=== PATIENT | male | born 1985 | race Hispanic/Latino ===

== ENCOUNTER 2017-02-05 04:10 | Emergency (ER) | payer SELFPAY ==
[~2017-02-05] VITALS: Ht 172.7 cm; Wt 72.6 kg
[2017-02-05] MEDS ORDERED: TETRACAINE 0.5% OPHTH SOLN 4 ML BTL (SINGLE DOSE ONLY) ONE (04:12)
--- NOTE | 2017-02-05 04:34 | ED General ---
General Chief Complaint: Foreign Body Stated Complaint: POSS BUG IN EAR Nursing Triage Note: bug Nursing Sepsis Screen: No Definite Risk Source of Information: Patient Exam Limitations: No Limitations History of Present Illness Time Seen by Provider: 04:10 Initial Comments This 31-year-old gentleman presents to emergency room with an insect in the right ear. Allergies and Home Medications Allergies Coded Allergies: No Known Drug Allergies (Unverified , 02/05/17) Home Medications No Active Prescriptions or Reported Meds Constitutional: no symptoms reported EENTM: see HPI Past Rnmrnpg-Ufvztk-Rwnrng Hx Patient Social History Alcohol Use: Denies Use Recreational Drug Use: No Smoking Status: Never a Smoker Recent Foreign Travel: No Contact w/Someone Who Travel: No Recent Infectious Disease Expo: No Immunizations Up To Date PED Vaccines UTD: No Physical Exam Vital Signs Vital Sign - Last 12Hours 02/05/17 02/05/17 04:20 04:36 Temp 98.2 Pulse 59 Resp 18 B/P (MAP) 119/72 Pulse Ox 99 Capillary Refill : Less Than 3 Seconds General Appearance: No Apparent Distress, WD/WN HEENT: PERRL/EOMI, Normal ENT Inspection, Other (insect visualized in the right ear canal) Neck: Normal Inspection Progress/Results/Core Measures Results/Orders My Orders Orders - KARISSA THOMAS MD Tetracaine 0.5% Ophth Rosalia Sdv (Tetracai (02/05/17 04:12) Medications Given in ED Current Medications Medications Dose Ordered Sig/Bereket Route Start Time Stop Time Status Last Admin Dose Admin Tetracaine HCl 4 ml STK-MED ONCE .ROUTE 02/05/17 04:12 02/05/17 04:19 DC 02/05/17 04:27 4 ML Vital Signs/I&O Vital Sign - Last 12Hours 02/05/17 02/05/17 04:20 04:36 Temp 98.2 Pulse 59 72 Resp 18 18 B/P (MAP) 119/72 Pulse Ox 99 Blood Pressure Mean: 88 Progress Note : Progress Note Tetracaine drops were used to fill the ear. A few minutes later the drops were drained out. A patino was extracted with alligator forceps. Ear was reexamined. There was mild erythema without any other abnormalities. Departure Impression Impression: Primary Impression: Foreign body of right ear Qualified Codes: T16.1XXA - Foreign body in right ear, initial encounter Disposition: HOME, SELF-CARE Condition: Improved Departure-Patient Inst. Decision time for Depature: 04:33 Referrals: NO,LOCAL PHYSICIAN (PCP) Primary Care Physician Patient Instructions: Foreign Body in Ear, Child (DC) Add. Discharge Instructions: Monitor the right ear over the next couple of days. If you have worsening pain or drainage, return to care for repeat evaluation. All discharge instructions reviewed with patient and/or family. Voiced understanding. Scripts No Active Prescriptions or Reported Meds KARISSA THOMAS MD Feb 05, 2017 04:34
[2017-02-05 04:36] VITALS: BP 119/72
== END 2017-02-05 04:37 | disposition home or self-care (01) ==
LOC: ER 04:15
DX: T16.1XXA Foreign body in right ear, initial encounter (principal)

== ENCOUNTER → 2018-01-23 | Outpatient (CLI) | payer SELFPAY ==
--- NOTE | 2018-01-23 18:31 | Diagnostic Imaging Report ---
PROCEDURE: US right lower extremity venous. TECHNIQUE: Multiple real-time grayscale images were obtained over the right lower extremity in various projections. Additional duplex Doppler and color Doppler images were also obtained. INDICATION: Right lower extremity swelling and pain. COMPARISON: None. FINDINGS: The visualized deep and superficial venous system is patent. There is no mass or DVT. IMPRESSION: Negative right lower extremity venous Doppler. Dictated by: Dictated on workstation # [id number]
== END ==
LOC: RAD 17:19
PROVIDERS: ATTEND Nurse Practitioner Family
DX: M79.661 Pain in right lower leg (principal); M79.89 Other specified soft tissue disorders

== ENCOUNTER 2021-02-09 19:13 | Inpatient (IN) | payer SELFPAY ==
[~2021-02-09] VITALS: Ht 167 cm; Wt 75.0 kg
--- NOTE | 2021-02-09 19:22 | ED General ---
General Stated Complaint: COVID POSITIVE, SOB Source of Information: Patient Exam Limitations: No Limitations History of Present Illness Date Seen by Provider: Feb 09, 2021 Time Seen by Provider: 19:21 Initial Comments Patient tested positive for Covid on 01/26/2021. He presents today with general weakness and overall feeling poorly. Timing/Duration: 1-2 Days Severity: Moderate Associated Systoms: Cough Allergies and Home Medications Allergies Coded Allergies: No Known Drug Allergies (Unverified , 02/05/17) Home Medications No Active Prescriptions or Reported Meds Patient Home Medication List Home Medication List Reviewed: Yes Review of Systems Review of Systems Constitutional: see HPI, weakness EENTM: see HPI Respiratory: see HPI Cardiovascular: no symptoms reported Genitourinary: no symptoms reported Musculoskeletal: no symptoms reported Skin: no symptoms reported Psychiatric/Neurological: No Symptoms Reported Hematologic/Lymphatic: No Symptoms Reported Immunological/Allergic: no symptoms reported Past Tvozott-Sjagti-Pleukl Hx Immunizations Up To Date PED Vaccines UTD: No Past Medical History Surgeries: No Respiratory: No Cardiac: No Neurological: No Genitourinary: No Gastrointestinal: No Musculoskeletal: No Endocrine: No HEENT: No Cancer: No Psychosocial: No Integumentary: No Blood Disorders: No Physical Exam Vital Signs Vital Signs - First Documented 02/09/21 19:26 Temp 37.2 Pulse 122 Resp 22 B/P (MAP) 134/90 (105) Pulse Ox 96 O2 Delivery Room Air Capillary Refill : Height, Weight, BMI Height: 5'8.00" Weight: 160lbs. oz. 72.535955bd; BMI Method:Stated General Appearance: No Apparent Distress, WD/WN, Other (appears to feel poorly but in no distress. O2 sats 95% room air. HR 131. ) Eyes: Bilateral Eye Normal Inspection, Bilateral Eye PERRL HEENT: PERRL/EOMI, TMs Normal Neck: Full Range of Motion, Normal Inspection Respiratory: No Accessory Muscle Use, No Respiratory Distress Cardiovascular: Normal Peripheral Pulses, Tachycardia Gastrointestinal: Normal Bowel Sounds, Non Tender, Soft Extremity: Normal Capillary Refill, Normal Inspection Neurologic/Psychiatric: Alert, Oriented x3 Skin: Normal Color, Warm/Dry Focused Exam Lactate Level 02/09/21 20:39: Lactic Acid Level 0.85 Lactic Acid Level Laboratory Tests Test 02/09/21 20:39 Lactic Acid Level 0.85 MMOL/L (0.50-2.00) Progress/Results/Core Measures Suspected Sepsis SIRS Temperature: Pulse: Respiratory Rate: Laboratory Tests 02/09/21 19:26: White Blood Count 13.5H Blood Pressure / Mean: 02/09/21 20:39: Lactic Acid Level 0.85 Laboratory Tests 02/09/21 19:26: Creatinine 1.09, Platelet Count 253, Total Bilirubin 0.4 Results/Orders Lab Results Laboratory Tests Test 02/09/21 19:26 02/09/21 19:54 02/09/21 20:39 Range/Units White Blood Count 13.5 H 4.3-11.0 10^3/uL Red Blood Count 5.92 H 4.30-5.52 10^6/uL Hemoglobin 17.3 13.3-17.7 g/dL Hematocrit 49 40-54 % Mean Corpuscular Volume 82 80-99 fL Mean Corpuscular Hemoglobin 29 25-34 pg Mean Corpuscular Hemoglobin Concent 36 32-36 g/dL Red Cell Distribution Width 12.3 10.0-14.5 % Platelet Count 253 130-400 10^3/uL Mean Platelet Volume 9.5 9.0-12.2 fL Immature Granulocyte % (Auto) 1 % Neutrophils (%) (Auto) 82 H 42-75 % Lymphocytes (%) (Auto) 8 L 12-44 % Monocytes (%) (Auto) 9 0-12 % Eosinophils (%) (Auto) 0 0-10 % Basophils (%) (Auto) 0 0-10 % Neutrophils # (Auto) 11.0 H 1.8-7.8 10^3/uL Lymphocytes # (Auto) 1.1 1.0-4.0 10^3/uL Monocytes # (Auto) 1.2 H 0.0-1.0 10^3/uL Eosinophils # (Auto) 0.0 0.0-0.3 10^3/uL Basophils # (Auto) 0.0 0.0-0.1 10^3/uL Immature Granulocyte # (Auto) 0.2 H 0.0-0.1 10^3/uL D-Dimer 3.57 H 0.00-0.49 UG/ML Sodium Level 135 135-145 MMOL/L Potassium Level 3.8 3.6-5.0 MMOL/L Chloride Level 104 98-107 MMOL/L Carbon Dioxide Level 6 *L 21-32 MMOL/L Anion Gap 25 H 5-14 MMOL/L Blood Urea Nitrogen 12 7-18 MG/DL Creatinine 1.09 0.60-1.30 MG/DL Estimat Glomerular Filtration Rate 77 BUN/Creatinine Ratio 11 Glucose Level 167 H 70-105 MG/DL Calcium Level 9.0 8.5-10.1 MG/DL Corrected Calcium 9.0 8.5-10.1 MG/DL Total Bilirubin 0.4 0.1-1.0 MG/DL Aspartate Amino Transf (AST/SGOT) 21 5-34 U/L Alanine Aminotransferase (ALT/SGPT) 20 0-55 U/L Alkaline Phosphatase 65 40-136 U/L C-Reactive Protein High Sensitivity 20.61 H 0.00-0.50 MG/DL B-Type Natriuretic Peptide 10.4 <100.0 PG/ML Total Protein 7.9 6.4-8.2 GM/DL Albumin 4.0 3.2-4.5 GM/DL Procalcitonin 0.08 <0.10 NG/ML Salicylates Level < 5.0 L 5.0-20.0 MG/DL Arterial Blood pH 7.22 *L 7.37-7.43 Lactic Acid Level 0.85 0.50-2.00 MMOL/L My Orders Orders - ROSARIO GARCÍA APRN BNP (02/09/21 19:20) Cbc With Automated Diff (02/09/21 19:20) Comprehensive Metabolic Panel (02/09/21 19:20) Ed Iv/Invasive Line Start (02/09/21 19:20) Fibrin Degradation Products (02/09/21 19:20) Hs C Reactive Protein (02/09/21 19:20) Procalcitonin (Pct) (02/09/21 19:20) Abg Ph (02/09/21 19:54) Beta Hydroxybutyrate (02/09/21 19:54) Salicylate (02/09/21 19:54) Ct Angio Chest W (02/09/21 19:55) Iohexol Injection (Omnipaque 350 Mg/Ml 1 (02/09/21 20:15) Received Contrast (Hold Metformin- Contr (02/09/21 20:15) Ns (Ivpb) (Sodium Chloride 0.9% Ivpb Bag (02/09/21 20:15) Lactic Acid Analyzer (02/09/21 20:31) Lactated Ringers (Lr 1000 Ml Iv Solution (02/09/21 21:30) Lactated Ringers (Lr 1000 Ml Iv Solution (02/09/21 21:20) Medications Given in ED Current Medications Medications Dose Ordered Sig/Bereket Route Start Time Stop Time Status Last Admin Dose Admin Iohexol 100 ml ONCE ONCE IV 02/09/21 20:15 02/09/21 20:16 DC 02/09/21 20:27 66 ML Sodium Chloride 100 ml ONCE ONCE IV 02/09/21 20:15 02/09/21 20:16 DC 02/09/21 20:27 80 ML Vital Signs/I&O 02/09/21 02/09/21 19:26 19:38 Temp 37.2 Pulse 122 Resp 22 B/P (MAP) 134/90 (105) Pulse Ox 96 O2 Delivery Room Air Room Air Capillary Refill : Diagnostic Imaging Diagonstic Imaging: CT Comments NAME: MAY BARR [facility] REC#: [id number] PT STATUS: REG ER : 1985 PHYSICIAN: ROSARIO GARCÍA PHYSICIAN CODING SPECIALIST ADMIT DATE: 02/09/21/ER Draft Date of Exam:02/09/21 CT ANGIO CHEST W INDICATION: Covid positive patient, elevated d-dimer and shortness of breath. TECHNIQUE: Multiple contiguous axial images were obtained through the chest after uneventful bolus administration of intravenous contrast. 3D reconstructed CTA MIP acquisitions were also performed. Auto Exposure Controls were utilized during the CT exam to meet ALARA standards for radiation dose reduction. COMPARISON: There is no prior chest CTA for comparison. FINDINGS: The pulmonary parenchymal vessels are well-opacified with no CT evidence of pulmonary emboli. There is no evidence of aortic aneurysm or dissection. Great vessel origins are unremarkable. There are a few minimal nodes in the mediastinum, none appear to be of pathologic size. There are no enlarged hilar nodes or enlarged axillary nodes. There is no pleural or pericardial fluid. The visualized portions of the upper abdomen show no acute finding. Lung parenchymal windows demonstrate fairly extensive groundglass patchy infiltrates throughout the mid to lower lung moon on both sides, compatible with Covid pneumonia. IMPRESSION: No CT evidence of pulmonary emboli, aortic dissection or aneurysm. Infiltrates are present compatible with Covid pneumonia. Dictated on workstation # [id number] Dict: 02/09/212031 Trans: 02/09/212037 [facility] [id number] Interpreted by: VASHTI SCHAEFFER MD Electronically signed by: Departure Communication (Admissions) [id number] with Dr. Ojeda will admit the patient, hydrate overnight repeat labs in the morning. No obvious cause for metabolic acidosis. Lab is having some issues getting the beta hydroxybutyrate back as their machine is down. This could be a euglycemic diabetic ketoacidosis versus starvation ketosis. Impression Primary Impression: COVID-19 Additional Impression: Metabolic acidosis Disposition: ADMITTED INPATIENT Condition: Stable Departure-Patient Inst. Referrals: NO,LOCAL PHYSICIAN (PCP/Family) Primary Care Physician Scripts No Active Prescriptions or Reported Meds ROSARIO GARCÍA APRN Feb 09, 2021 19:22
[2021-02-09 19:35] LABS: BASOPHILS % (AUTO) 0 % (0-10); EOSINOPHILS % (AUTO) 0 % (0-10); HEMATOCRIT 49 % (40-54); HEMOGLOBIN 17.3 g/dL (13.3-17.7); LYMPHOCYTES # (AUTO) 1.1 10^3/uL (1.0-4.0); LYMPHOCYTES % (AUTO) 8 % (12-44); MEAN CORPUSCULAR HEMOGLOBIN 29 pg (25-34); MEAN CORPUSCULAR HGB CONC 36 g/dL (32-36); MEAN CORPUSCULAR VOLUME 82 fL (80-99); MEAN PLATELET VOLUME 9.5 fL (9.0-12.2); MONOCYTES # (AUTO) 1.2 10^3/uL (0.0-1.0); MONOCYTES % (AUTO) 9 % (0-12); NEUTROPHILS % (AUTO) 82 % (42-75); PLATELET COUNT 253 10^3/uL (130-400); WHITE BLOOD COUNT 13.5 10^3/uL (4.3-11.0)
[2021-02-09 19:44] LABS: POTASSIUM 3.8 MMOL/L (3.6-5.0)
[2021-02-09 19:46] LABS: TOTAL PROTEIN 7.9 GM/DL (6.4-8.2)
[2021-02-09 19:48] LABS: BILIRUBIN,TOTAL 0.4 MG/DL (0.1-1.0)
[2021-02-09] MEDS ORDERED: HOLD METFORMIN - RECEIVED CONTRAST 20 ML VIAL IV SCH (20:15)
[2021-02-09] MEDS ORDERED: NS 100 ML (IVPB) BAG IV ONE (20:15)
[2021-02-09] MEDS ORDERED: IOHEXOL 350 MG/ML 100 ML (OMNIPAQUE 350) VIAL IV ONE (20:15)
[2021-02-09 20:37] LABS: SALICYLATE < 5.0 MG/DL (5.0-20.0)
--- NOTE | 2021-02-09 20:40 | Diagnostic Imaging Report ---
INDICATION: Covid positive patient, elevated d-dimer and shortness of breath. TECHNIQUE: Multiple contiguous axial images were obtained through the chest after uneventful bolus administration of intravenous contrast. 3D reconstructed CTA MIP acquisitions were also performed. Auto Exposure Controls were utilized during the CT exam to meet ALARA standards for radiation dose reduction. COMPARISON: There is no prior chest CTA for comparison. FINDINGS: The pulmonary parenchymal vessels are well-opacified with no CT evidence of pulmonary emboli. There is no evidence of aortic aneurysm or dissection. Great vessel origins are unremarkable. There are a few minimal nodes in the mediastinum, none appear to be of pathologic size. There are no enlarged hilar nodes or enlarged axillary nodes. There is no pleural or pericardial fluid. The visualized portions of the upper abdomen show no acute finding. Lung parenchymal windows demonstrate fairly extensive groundglass patchy infiltrates throughout the mid to lower lung moon on both sides, compatible with Covid pneumonia. IMPRESSION: No CT evidence of pulmonary emboli, aortic dissection or aneurysm. Infiltrates are present compatible with Covid pneumonia. Dictated by: Dictated on workstation # [id number]
[2021-02-09 20:54] LABS: CREATININE SERUM 1.09 MG/DL (0.60-1.30)
[2021-02-09] MEDS ORDERED: LACTATED RINGERS 1,000 ML IV ONE (21:20)
[2021-02-09] MEDS ORDERED: LACTATED RINGERS 1,000 ML IV SCH (21:30)
[2021-02-09 23:45] VITALS: BP 118/79
[2021-02-10] VITALS (12 sets, daily range): BP systolic 108–130; BP diastolic 65–87
[2021-02-10] MEDS ORDERED: ACETAMINOPHEN 325 MG TABLET PO PRN (00:15)
[2021-02-10] MEDS ORDERED: ONDANSETRON 4 MG/2 ML (SDV) Z0FRAN IVP PRN (00:15)
[2021-02-10] MEDS: LACTATED RINGERS 1,000 ML IV SCH ×3 (01:00→16:05)
[2021-02-10 05:50] LABS: BASOPHILS % (AUTO) 0 % (0-10); EOSINOPHILS % (AUTO) 0 % (0-10); HEMATOCRIT 47 % (40-54); LYMPHOCYTES % (AUTO) 8 % (12-44); MEAN CORPUSCULAR HEMOGLOBIN 29 pg (25-34); MEAN CORPUSCULAR HGB CONC 34 g/dL (32-36); MEAN CORPUSCULAR VOLUME 84 fL (80-99); MEAN PLATELET VOLUME 9.9 fL (9.0-12.2); MONOCYTES # (AUTO) 1.1 10^3/uL (0.0-1.0); MONOCYTES % (AUTO) 10 % (0-12); NEUTROPHILS # (AUTO) 9.2 10^3/uL (1.8-7.8); NEUTROPHILS % (AUTO) 80 % (42-75); PLATELET COUNT 229 10^3/uL (130-400); WHITE BLOOD COUNT 11.5 10^3/uL (4.3-11.0)
[2021-02-10 06:01] LABS: POTASSIUM 3.8 MMOL/L (3.6-5.0)
[2021-02-10 06:02] LABS: CALCIUM 8.5 MG/DL (8.5-10.1)
[2021-02-10 06:07] LABS: CREATININE SERUM 0.98 MG/DL (0.60-1.30)
[2021-02-10 10:09] LABS: ABG OXYGEN SATURATION 96 % (94-100); ABG PO2 83 MMHG (79-93); ABG TCO2 7.2 MMOL/L (21.0-31.0)
[2021-02-10 10:14] LABS: ALLENS TEST YES-POS; INSPIRED O2 RA; PATIENT TEMP 36.2; VENTILATOR NO
[2021-02-10 10:17] LABS: ABG PCO2 17 MMHG (35-45); ABG PH 7.22 (7.37-7.43)
[2021-02-10] MEDS ORDERED: D5 1/2 NS 1000 ML IV SOLUTION 1,000 ML IV SCH (11:30)
--- NOTE | 2021-02-10 11:35 | Tele-ICU Consult ---
History of Present Illness History of Present Illness Date Seen by Provider: Feb 10, 2021 Time Seen by Provider: 11:30 Date of Admission History of Present Illness 35 y old man with hx of DM got admitted with significant weakness; he was found to be COVID + (not vaccinated). Pt was found to have severe metabolic acidosis with high AG and high BHB- DKA was diagnosed. Occ cough and sob reported; pt denies n/v/d Allergies and Home Medications Allergies Coded Allergies: No Known Drug Allergies (Unverified , 02/05/17) Home Medications No Active Prescriptions or Reported Meds Past Medical/Social/Family Hx Patient Social History Tobacco Use?: No Smoking Status: Never a Smoker Smokeless Tobacco Frequency: Never a User Use of E-Cig and/or Vaping dev: No Substance use?: No Alcohol Use?: Yes Alcohol type: Beer Alcohol Frequency: Once in a while Every weekend Pt stated abuse/neglect: No Immunizations Up To Date Influenza Vaccine Up-to-Date: No; Not Current Tetanus Booster (TDap): Less Than 5 Years Current Status Advance Directives: No Communicates: Verbally Primary Language: Icelandic Preferred Spoken Language: Icelandic Is interpretation needed?: No Implanted or Applied Medical D: None Past Medical History DM Review of Systems Constitutional: see HPI Sepsis Event Evaluation Height, Weight, BMI Height: 5'8.00" Weight: 160lbs. oz. 72.959694sn; 26.89 BMI Method:Stated Exam Exam Patient acknowledged, consented, and participated in this virtual visit which was conducted using real time audio/video Vital Signs Date Time Temp Pulse Resp B/P (MAP) Pulse Ox O2 Delivery O2 Flow Rate FiO2 02/10/21 10:52 83 02/10/21 08:00 98 Room Air 02/10/21 07:51 36.2 102 18 130/85 (100) 98 Room Air 02/10/21 07:00 93 02/10/21 04:30 36.7 100 20 126/85 (99) 98 Room Air 02/10/21 00:00 101 02/09/21 23:45 36.4 115 24 118/79 (92) 95 Room Air 02/09/21 23:45 95 Room Air 02/09/21 23:32 106 27 124/92 95 Room Air 02/09/21 19:38 Room Air 8/11/21 19:26 37.2 122 22 134/90 (105) 96 Room Air I & O 02/10/21 07:00 Intake Total 1500 ml Balance 1500 ml Height & Weight Height: 5'8.00" Weight: 160lbs. oz. 72.187262gp; 26.89 BMI Method:Stated General Appearance: No Apparent Distress, WD/WN, Other (appears to feel poorly but in no distress. O2 sats 95% room air. HR 131. ) HEENT: PERRL/EOMI, TMs Normal Neck: Full Range of Motion, Normal Inspection Respiratory: Lungs Clear, No Accessory Muscle Use, No Respiratory Distress Cardiovascular: No Edema, Normal Peripheral Pulses, Tachycardia Capillary Refill: Less Than 3 Seconds Extremity: Normal Capillary Refill, Normal Inspection Neurologic/Psychiatric: Alert, Oriented x3 Skin: Normal Color, Warm/Dry Results Lab Laboratory Tests 02/09/21 19:26 02/10/21 05:19 Assessment/Plan Assessment/Plan COVID 19 steroids/ lovenox/ trend d dimer DKA with low glycemia; check lipase; start insulin per protocol; start d5 and consider advancing to d1 if low glycemia occur. -abg/bmp per protocol transfer to step down/ icu for insulin protocol LEE FORD MD Feb 10, 2021 11:35
--- NOTE | 2021-02-10 13:29 | History & Physical-Hospitalist ---
History of Present Illness HPI/Chief Complaint Pt is a 35yoCM with a PMH NIDDMII who presented to the Er due to weakness a from COVID19. He reports his symptoms started 02/02. His tested positive on 02/01. He is unvaccinated against COVID19. He complains of cough and weakness mostly. He started to get worse a couple of days ago prompting him to seek evaluation in the ER today as he was not improving. He satting well but tachypneic and found to have a profound metabolic acidosis and was admitted for further care. He reports feeling somewhat better today but still not well. Source: patient Date Seen 02/10/21 Time Seen by a Provider: 13:29 Attending Physician Erik Ojeda MD PCP No,Local Physician Referring Physician Date of Admission Feb 09, 2021 at 22:14 Home Medications & Allergies Home Medications Reviewed patient Home Medication Reconciliation performed by pharmacy medication reconciliations low voltage technician and/or nursing. Patients Allergies have been reviewed. Allergies Allergies Coded Allergies No Known Drug Allergies (Unverified02/05/17) Past Mejignc-Kanefz-Dkfjxs Hx Patient Social History Tobacco Use?: No Smoking Status: Never a Smoker Smokeless Tobacco Frequency: Never a User Use of E-Cig and/or Vaping dev: No Substance use?: No Alcohol Use?: Yes Alcohol type: Beer Alcohol Frequency: Once in a while Additional Alcohol Comments: Every weekend Pt feels they are or have been: No Immunizations Up To Date Tetanus Booster (TDap): Less Than 5 Years PED Vaccines UTD: No Current Status Advance Directives: No Communicates: Verbally Primary Language: [place] Citizen Preferred Spoken Language: [place] Citizen Is interpretation needed?: No Implanted or Applied Medical D: None Past Medical History Blood Disorders: No DM Review of Systems Constitutional: No chills, No fever; malaise, weakness Respiratory: cough, short of breath Cardiovascular: No chest pain, No palpitations Gastrointestinal: No abdominal pain, No constipation, No diarrhea Musculoskeletal: no symptoms reported Skin: no symptoms reported Psychiatric/Neurological: No Symptoms Reported Physical Exam Physical Exam Vital Signs Vital Signs - First Documented 02/09/21 19:26 Temp 37.2 Pulse 122 Resp 22 B/P (MAP) 134/90 (105) Pulse Ox 96 O2 Delivery Room Air Capillary Refill : Less Than 3 Seconds Height, Weight, BMI Height: 5'8.00" Weight: 160lbs. oz. 72.304500ot; 26.89 BMI Method:Stated General Appearance: No Apparent Distress, Chronically ill HEENT: PERRL/EOMI, Moist Mucous Membranes; No Scleral Icterus (L), No Scleral Icterus (R) Neck: Normal Inspection, Supple Respiratory: Lungs Clear, No Accessory Muscle Use, No Respiratory Distress Cardiovascular: Regular Rate, Rhythm, No Murmur Gastrointestinal: Normal Bowel Sounds, Non Tender, Soft Extremity: No Calf Tenderness, No Pedal Edema Neurologic/Psychiatric: Alert, Oriented x3, Normal Mood/Affect Skin: Normal Color, Warm/Dry Results Results/Procedures Labs Laboratory Tests 02/09/21 19:26 02/10/21 05:19 Patient resulted labs reviewed. Imaging: Reviewed Imaging Report Imaging [facility] [place], [place] NAME: MAY BARR [facility] REC#: [id number] PT STATUS: REG ER : 1985 PHYSICIAN: ROSARIO GARCÍA APRN ADMIT DATE: 02/09/21/ER Signed Date of Exam:02/09/21 CT ANGIO CHEST W INDICATION: Covid positive patient, elevated d-dimer and shortness of breath. TECHNIQUE: Multiple contiguous axial images were obtained through the chest after uneventful bolus administration of intravenous contrast. 3D reconstructed CTA MIP acquisitions were also performed. Auto Exposure Controls were utilized during the CT exam to meet ALARA standards for radiation dose reduction. COMPARISON: There is no prior chest CTA for comparison. FINDINGS: The pulmonary parenchymal vessels are well-opacified with no CT evidence of pulmonary emboli. There is no evidence of aortic aneurysm or dissection. Great vessel origins are unremarkable. There are a few minimal nodes in the mediastinum, none appear to be of pathologic size. There are no enlarged hilar nodes or enlarged axillary nodes. There is no pleural or pericardial fluid. The visualized portions of the upper abdomen show no acute finding. Lung parenchymal windows demonstrate fairly extensive groundglass patchy infiltrates throughout the mid to lower lung moon on both sides, compatible with Covid pneumonia. IMPRESSION: No CT evidence of pulmonary emboli, aortic dissection or aneurysm. Infiltrates are present compatible with Covid pneumonia. Dictated by: Dictated on workstation # [id number] Dict: 02/09/212031 Trans: 02/09/218 [facility] [id number] Interpreted by: VASHTI SCHAEFFER MD Electronically signed by: VASHTI SCHAEFFER MD 02/09/218 Assessment/Plan Admission Diagnosis Metabolic acidosis Admission Status: Inpatient Order (span 2 midnights) Reason for Inpatient Admission: see below Assessment and Plan Metabolic acidosis- euglycemic DKA Known diabetic but he is unsure of the meds he takes (denies insulin) transfer to ICU for insulin gtt and dextrose BHB elevated salicylates negative, alcohol negative, lactic negative A1c ordered COVID19 Not hypoxic Not admitted for COVID symptoms Will do Regeneron at is on day 9-10 of symptoms and high risk No indication for decadron or other treatment IS dvt ppx: LoveDILMA Hobson MD Feb 10, 2021 13:29
[2021-02-10 15:11] LABS: BASOPHILS % (AUTO) 0 % (0-10); EOSINOPHILS % (AUTO) 0 % (0-10); HEMATOCRIT 43 % (40-54); LYMPHOCYTES % (AUTO) 10 % (12-44); MEAN CORPUSCULAR HEMOGLOBIN 29 pg (25-34); MEAN CORPUSCULAR HGB CONC 35 g/dL (32-36); MEAN CORPUSCULAR VOLUME 83 fL (80-99); MEAN PLATELET VOLUME 9.1 fL (9.0-12.2); MONOCYTES # (AUTO) 0.8 10^3/uL (0.0-1.0); MONOCYTES % (AUTO) 8 % (0-12); NEUTROPHILS # (AUTO) 8.7 10^3/uL (1.8-7.8); NEUTROPHILS % (AUTO) 81 % (42-75); PLATELET COUNT 230 10^3/uL (130-400); WHITE BLOOD COUNT 10.8 10^3/uL (4.3-11.0)
[2021-02-10 15:22] LABS: POTASSIUM 3.8 MMOL/L (3.6-5.0)
[2021-02-10 15:23] LABS: CALCIUM 8.3 MG/DL (8.5-10.1)
[2021-02-10 15:27] LABS: CREATININE SERUM 0.92 MG/DL (0.60-1.30)
[2021-02-10] MEDS ORDERED: ATOR10TA66 PO (15:28)
[2021-02-10] MEDS ORDERED: METF-399 PO (15:28)
[2021-02-10] MEDS ORDERED: CANA300T PO (15:28)
[2021-02-10] MEDS ORDERED: MULT-1030 PO (15:28)
[2021-02-10] MEDS ORDERED: PARO20TA5 PO (15:28)
[2021-02-10] MEDS ORDERED: diphenhydrAMINE 50 MG/ML INJ (BENADRYL) IV PRN (15:30)
[2021-02-10] MEDS ORDERED: ONDANSETRON 4 MG/2 ML (SDV) Z0FRAN IV PRN (15:30)
[2021-02-10] MEDS ORDERED: ACETAMINOPHEN 500 MG TAB (TYLENOL) PO PRN (15:30)
[2021-02-10] MEDS ORDERED: CASIRIVIMAB/IMDEVIMAB 1,200 MG in NS (IVPB) 250 ML IV ONE (15:30)
[2021-02-10] MEDS ORDERED: EPINEPHrine INJECTION 1 MG/ML AMP IM PRN (15:30)
[2021-02-10 15:34] LABS: BAND NEUTROPHILS 2 %; LYMPHOCYTES % (MANUAL) 8 %; MONOCYTES % (MANUAL) 4 %; NEUTROPHILS % (MANUAL) 86 %; RBC MORPH NORMAL
[2021-02-10] MEDS ORDERED: NS IV 1000 ML 1,000 ML IV SCH (16:00)
[2021-02-10] MEDS: 1/2 NS IV SOLUTION 1,000 ML IV SCH ×2 (16:03→21:09)
[2021-02-10] MEDS: D5 1/2 NS 1000 ML IV SOLUTION 1,000 ML IV SCH ×3 (16:06→22:48)
[2021-02-10] MEDS: ENOXAPARIN 40 MG/0.4 ML (LOVENOX) SYR SQ SCH (16:32)
[2021-02-10] MEDS: POTASSIUM CL 10MEQ/50ML IVPB 50 ML IV SCH ×7 (16:33→22:52)
[2021-02-10 17:23] LABS: POTASSIUM 3.3 MMOL/L (3.6-5.0)
[2021-02-10 17:25] LABS: CALCIUM 8.1 MG/DL (8.5-10.1)
[2021-02-10 17:29] LABS: CREATININE SERUM 0.91 MG/DL (0.60-1.30)
[2021-02-10 19:07] LABS: POTASSIUM 3.2 MMOL/L (3.6-5.0)
[2021-02-10 19:08] LABS: CALCIUM 7.9 MG/DL (8.5-10.1)
[2021-02-10 19:13] LABS: CREATININE SERUM 0.82 MG/DL (0.60-1.30)
[2021-02-10 20:08] LABS: CLARITY,URINE CLEAR; COLOR,URINE YELLOW; GLUCOSE, URINE (UA) 2+ (NEGATIVE); KETONES,URINE 3+ (NEGATIVE); LEUKOCYTE ESTERASE ,URINE NEGATIVE (NEGATIVE); NITRITE,URINE NEGATIVE (NEGATIVE); PROTEIN,URINE 1+ (NEGATIVE)
[2021-02-10 20:26] LABS: BILIRUBIN,URINE 1+ (NEGATIVE)
[2021-02-10 20:27] LABS: AMORPHOUS SEDIMENT,UR FEW AMOR URATES /LPF; BACTERIA,URINE TRACE /HPF; RBC,URINE RARE /HPF; SQUAMOUS EPITHELIAL CELL,UR RARE /HPF; WBC,URINE RARE /HPF
[2021-02-10] MEDS: AtorvaSTATin TABLET 10 MG TABLET PO SCH (20:46)
[2021-02-10 22:27] LABS: CALCIUM 7.9 MG/DL (8.5-10.1); CREATININE SERUM 0.84 MG/DL (0.60-1.30); POTASSIUM 3.6 MMOL/L (3.6-5.0)
[2021-02-11] VITALS (17 sets, daily range): BP systolic 90–121; BP diastolic 58–80
[2021-02-11] MEDS: POTASSIUM CL 10MEQ/50ML IVPB 50 ML IV SCH ×6 (00:33→09:01)
[2021-02-11] MEDS: 1/2 NS IV SOLUTION 1,000 ML IV SCH ×3 (00:43→08:10)
[2021-02-11] MEDS: D5 1/2 NS 1000 ML IV SOLUTION 1,000 ML IV SCH ×2 (02:32→06:36)
[2021-02-11 03:24] LABS: POTASSIUM 3.3 MMOL/L (3.6-5.0)
[2021-02-11 03:25] LABS: CALCIUM 7.8 MG/DL (8.5-10.1)
[2021-02-11 03:29] LABS: CREATININE SERUM 0.77 MG/DL (0.60-1.30)
[2021-02-11 04:28] LABS: BASOPHILS % (AUTO) 0 % (0-10); EOSINOPHILS % (AUTO) 0 % (0-10); HEMATOCRIT 38 % (40-54); HEMOGLOBIN 13.8 g/dL (13.3-17.7); LYMPHOCYTES # (AUTO) 0.9 10^3/uL (1.0-4.0); LYMPHOCYTES % (AUTO) 10 % (12-44); MEAN CORPUSCULAR HEMOGLOBIN 29 pg (25-34); MEAN CORPUSCULAR HGB CONC 36 g/dL (32-36); MEAN CORPUSCULAR VOLUME 81 fL (80-99); MEAN PLATELET VOLUME 9.7 fL (9.0-12.2); MONOCYTES # (AUTO) 0.7 10^3/uL (0.0-1.0); MONOCYTES % (AUTO) 9 % (0-12); NEUTROPHILS # (AUTO) 6.7 10^3/uL (1.8-7.8); NEUTROPHILS % (AUTO) 78 % (42-75); PLATELET COUNT 233 10^3/uL (130-400); WHITE BLOOD COUNT 8.6 10^3/uL (4.3-11.0)
[2021-02-11] MEDS: MAGNESIUM 1 GM/100 ML IVPB 100 ML IV SCH (04:51)
[2021-02-11] MEDS: KCL 20 MEQ TAB (K-DUR) PO SCH (04:51)
[2021-02-11] MEDS: PARoxetine 20 MG (PAXIL) TAB PO SCH (08:10)
[2021-02-11] MEDS ORDERED: KCL 20 MEQ TAB (K-DUR) PO ONE ×2 (09:00→11:00)
--- NOTE | 2021-02-11 09:29 | Progress Note - Hospitalist ---
Subjective HPI/CC On Admission Date Seen by Provider: Feb 11, 2021 Time Seen by Provider: 09:27 Pt is a 35yoCM with a PMH NIDDMII who presented to the Er due to weakness a from COVID19. He reports his symptoms started 02/02. His tested positive on 02/01. He is unvaccinated against COVID19. He complains of cough and weakness mostly. He started to get worse a couple of days ago prompting him to seek evaluation in the ER today as he was not improving. He satting well but tachypneic and found to have a profound metabolic acidosis and was admitted for further care. He reports feeling somewhat better today but still not well. Subjective/Events-last exam Pt reports feeling better today. BS improved. Informed him that we willlikely DC gtt today and move him back down tothe floor ifhe does well. He is agreeable to plan. Focused Exam Lactate Level 02/09/21 20:39: Lactic Acid Level 0.85 Objective Exam Vital Signs Vital Signs Date Time Temp Pulse Resp B/P (MAP) Pulse Ox O2 Delivery O2 Flow Rate FiO2 02/11/21 08:00 98 Room Air 02/11/21 08:00 86 22 106/72 (83) 02/11/21 07:30 37.1 Capillary Refill : Less Than 3 Seconds General Appearance: No Apparent Distress, WD/WN Respiratory: Lungs Clear, No Respiratory Distress Cardiovascular: Regular Rate, Rhythm, No Murmur Gastrointestinal: Normal Bowel Sounds, Non Tender, Soft Neurologic/Psychiatric: Alert, Oriented x3 Results/Procedures Lab Laboratory Tests 02/10/21 15:02 02/10/21 16:49 02/10/21 18:50 02/10/21 22:00 02/11/21 03:02 Patient resulted labs reviewed. Imaging: Reviewed Imaging Report Assessment/Plan Assessment and Plan Assess & Plan/Chief Complaint Metabolic acidosis- euglycemic DKA Known diabetic and after inquiry found out he is on Invokana [place] closed, Bicarb improved Try to transition off insulin gtt today BMP at 1400 salicylates negative, alcohol negative, lactic negative A1c 8.2 COVID19 Not hypoxic Not admitted for COVID symptoms Received Regeneron on 02/10 No indication for decadron or other treatment IS dvt ppx: DILMA Gómez MD Feb 11, 2021 09:29
[2021-02-11 14:30] LABS: CALCIUM 8.1 MG/DL (8.5-10.1); CREATININE SERUM 0.65 MG/DL (0.60-1.30); POTASSIUM 3.3 MMOL/L (3.6-5.0)
[2021-02-11] MEDS: ENOXAPARIN 40 MG/0.4 ML (LOVENOX) SYR SQ SCH (15:28)
[2021-02-11] MEDS: inSUlin ASPART (NovoLOG) 1 UNIT/0.01 ML (CHARGE PER UNIT) SQ SCH ×2 (16:09→20:08)
[2021-02-11] MEDS: AtorvaSTATin TABLET 10 MG TABLET PO SCH (20:08)
[2021-02-12 03:51] VITALS: BP 133/83
[2021-02-12] MEDS: inSUlin ASPART (NovoLOG) 1 UNIT/0.01 ML (CHARGE PER UNIT) SQ SCH ×4 (06:01→20:49)
[2021-02-12 07:25] LABS: BASOPHILS # (AUTO) 0.1 10^3/uL (0.0-0.1); BASOPHILS % (AUTO) 1 % (0-10); EOSINOPHILS % (AUTO) 0 % (0-10); HEMATOCRIT 38 % (40-54); LYMPHOCYTES # (AUTO) 1.3 10^3/uL (1.0-4.0); LYMPHOCYTES % (AUTO) 16 % (12-44); MEAN CORPUSCULAR HEMOGLOBIN 29 pg (25-34); MEAN CORPUSCULAR HGB CONC 37 g/dL (32-36); MEAN CORPUSCULAR VOLUME 79 fL (80-99); MEAN PLATELET VOLUME 9.6 fL (9.0-12.2); MONOCYTES # (AUTO) 0.8 10^3/uL (0.0-1.0); MONOCYTES % (AUTO) 10 % (0-12); NEUTROPHILS # (AUTO) 5.3 10^3/uL (1.8-7.8); NEUTROPHILS % (AUTO) 66 % (42-75); PLATELET COUNT 283 10^3/uL (130-400)
[2021-02-12 07:41] LABS: SMEAR SCAN COMMENT YES
[2021-02-12 07:48] LABS: CALCIUM 8.3 MG/DL (8.5-10.1); CREATININE SERUM 0.61 MG/DL (0.60-1.30); POTASSIUM 3.1 MMOL/L (3.6-5.0)
[2021-02-12 08:00] VITALS: BP 121/79
[2021-02-12] MEDS: KCL 20 MEQ TAB (K-DUR) PO SCH (08:40)
[2021-02-12] MEDS: MAGNESIUM 1 GM/100 ML IVPB 100 ML IV SCH (08:40)
[2021-02-12] MEDS ORDERED: POTASSIUM CL 10MEQ/50ML IVPB 50 ML IV ONE ×4 (09:00→12:00)
[2021-02-12] MEDS ORDERED: NS IV 500 ML 500 ML ONE (10:25)
[2021-02-12] MEDS: PARoxetine 20 MG (PAXIL) TAB PO SCH (11:44)
[2021-02-12 12:00] VITALS: BP 115/75
--- NOTE | 2021-02-12 13:59 | Progress Note - Hospitalist ---
Subjective HPI/CC On Admission Date Seen by Provider: Feb 12, 2021 Time Seen by Provider: 13:55 Pt is a 35yoCM with a PMH NIDDMII who presented to the Er due to weakness a from COVID19. He reports his symptoms started 02/02. His tested positive on 02/01. He is unvaccinated against COVID19. He complains of cough and weakness mostly. He started to get worse a couple of days ago prompting him to seek evaluation in the ER today as he was not improving. He satting well but tachypneic and found to have a profound metabolic acidosis and was admitted for further care. He reports feeling somewhat better today but still not well. Subjective/Events-last exam Pt reports feeling much better today. No complaints. Discussed lab results and that BHB went up. Will watch one more day and hopeful home tomorrow. Focused Exam Lactate Level 02/09/21 20:39: Lactic Acid Level 0.85 Objective Exam Vital Signs Vital Signs Date Time Temp Pulse Resp B/P (MAP) Pulse Ox O2 Delivery O2 Flow Rate FiO2 02/12/21 12:00 36.7 83 18 115/75 (88) 94 Room Air Capillary Refill : Less Than 3 Seconds General Appearance: No Apparent Distress, WD/WN Respiratory: Lungs Clear, No Respiratory Distress Cardiovascular: Regular Rate, Rhythm, No Murmur Gastrointestinal: Normal Bowel Sounds, Non Tender, Soft Neurologic/Psychiatric: Alert, Oriented x3 Results/Procedures Lab Laboratory Tests 02/11/21 14:05 02/12/21 06:45 Patient resulted labs reviewed. Imaging: Reviewed Imaging Report Assessment/Plan Assessment and Plan Assess & Plan/Chief Complaint Metabolic acidosis- euglycemic DKA Known diabetic and after inquiry found out he is on Invokana Gap closed, Bicarb improved again today but BHB up Doign well off insulin gtt salicylates negative, alcohol negative, lactic negative A1c 8.2 If clinically improved and gap remains close with stable or improving bicarb will DC home tomorrow COVID19 Not hypoxic Not admitted for COVID symptoms Received Regeneron on 02/10 No indication for decadron or other treatment IS dvt ppx: DILMA Gómez MD Feb 12, 2021 13:59
[2021-02-12] MEDS: ENOXAPARIN 40 MG/0.4 ML (LOVENOX) SYR SQ SCH (15:47)
[2021-02-12 16:00] VITALS: BP 121/76
[2021-02-12] MEDS: POTASSIUM CL 10MEQ/50ML IVPB 50 ML IV SCH (19:03)
[2021-02-12 19:44] VITALS: BP 104/71
[2021-02-12] MEDS: AtorvaSTATin TABLET 10 MG TABLET PO SCH (20:09)
[2021-02-12 23:50] VITALS: BP 110/77
[2021-02-13 04:24] VITALS: BP 107/72
[2021-02-13] MEDS: inSUlin ASPART (NovoLOG) 1 UNIT/0.01 ML (CHARGE PER UNIT) SQ SCH ×2 (05:46→11:43)
[2021-02-13 06:39] LABS: BASOPHILS % (AUTO) 0 % (0-10); EOSINOPHILS # (AUTO) 0.1 10^3/uL (0.0-0.3); EOSINOPHILS % (AUTO) 1 % (0-10); HEMATOCRIT 40 % (40-54); HEMOGLOBIN 14.7 g/dL (13.3-17.7); LYMPHOCYTES # (AUTO) 1.5 10^3/uL (1.0-4.0); LYMPHOCYTES % (AUTO) 21 % (12-44); MEAN CORPUSCULAR HEMOGLOBIN 29 pg (25-34); MEAN CORPUSCULAR HGB CONC 37 g/dL (32-36); MEAN CORPUSCULAR VOLUME 80 fL (80-99); MEAN PLATELET VOLUME 8.8 fL (9.0-12.2); MONOCYTES # (AUTO) 0.7 10^3/uL (0.0-1.0); MONOCYTES % (AUTO) 10 % (0-12); NEUTROPHILS # (AUTO) 4.3 10^3/uL (1.8-7.8); NEUTROPHILS % (AUTO) 58 % (42-75); PLATELET COUNT 308 10^3/uL (130-400); WHITE BLOOD COUNT 7.4 10^3/uL (4.3-11.0)
[2021-02-13] MEDS: POTASSIUM CL 10MEQ/50ML IVPB 50 ML IV SCH (06:40)
[2021-02-13] MEDS: MAGNESIUM 1 GM/100 ML IVPB 100 ML IV SCH ×2 (06:40→06:58)
[2021-02-13] MEDS: KCL 20 MEQ TAB (K-DUR) PO SCH ×2 (06:40→06:54)
[2021-02-13 06:49] LABS: POTASSIUM 3.2 MMOL/L (3.6-5.0)
[2021-02-13 06:50] LABS: CALCIUM 8.5 MG/DL (8.5-10.1)
[2021-02-13 06:55] LABS: CREATININE SERUM 0.55 MG/DL (0.60-1.30)
[2021-02-13] MEDS ORDERED: KCL 20 MEQ TAB (K-DUR) PO ONE ×2 (07:00→09:00)
[2021-02-13 07:26] VITALS: BP 111/74
[2021-02-13] MEDS: PARoxetine 20 MG (PAXIL) TAB PO SCH (08:54)
[2021-02-13 11:11] VITALS: BP 117/79
--- NOTE | 2021-02-13 13:13 | Discharge Summary ---
Diagnosis/Chief Complaint Date of Admission Feb 09, 2021 at 22:14 Date of Discharge Admission Diagnosis Metabolic acidosis Primary Care No,Local Physician Discharge Summary Discharge Physical Exam Allergies: Coded Allergies: No Known Drug Allergies (Unverified , 02/05/17) Vitals & I&Os Vital Signs Date Time Temp Pulse Resp B/P (MAP) Pulse Ox O2 Delivery O2 Flow Rate FiO2 02/13/21 11:11 36.9 80 18 117/79 (92) 96 Room Air General Appearance: No Apparent Distress, WD/WN Cardiovascular: Regular Rate, Rhythm, No Murmur Neurologic/Psychiatric: Alert, Oriented x3 Hospital Course Patient is a 35-year-old male who was admitted to the hospital due to euglycemic DKA. He was found to have a severe metabolic acidosis with elevated beta hydroxybutyrate. He is on Invokana as an outpatient. He was started on an insulin drip and his acidosis resolved. He was also COVID-19 positive. He was not admitted for any Covid related issues and was never hypoxic. Therefore he was treated with Regeneron as he was admitted within the timeframe. He did well and was able to be discharged home in stable and improved condition to follow-up with his primary care doctor. Labs (last 24 hrs) Laboratory Tests 02/12/21 15:40: Glucometer 222H 02/12/21 20:07: Glucometer 227H 02/13/21 05:43: Glucometer 141H 02/13/21 06:05: White Blood Count 7.4, Red Blood Count 5.03, Hemoglobin 14.7, Hematocrit 40, Mean Corpuscular Volume 80, Mean Corpuscular Hemoglobin 29, Mean Corpuscular Hemoglobin Concent 37H, Red Cell Distribution Width 12.5, Platelet Count 308, Mean Platelet Volume 8.8L, Immature Granulocyte % (Auto) 10, Neutrophils (%) (Auto) 58, Lymphocytes (%) (Auto) 21, Monocytes (%) (Auto) 10, Eosinophils (%) (Auto) 1, Basophils (%) (Auto) 0, Neutrophils # (Auto) 4.3, Lymphocytes # (Auto) 1.5, Monocytes # (Auto) 0.7, Eosinophils # (Auto) 0.1, Basophils # (Auto) 0.0, Immature Granulocyte # (Auto) 0.7H, Sodium Level 140, Potassium Level 3.2L, Chloride Level 104, Carbon Dioxide Level 23, Anion Gap 13, Blood Urea Nitrogen 8, Creatinine 0.55L, Estimat Glomerular Filtration Rate 169, BUN/Creatinine Ratio 15, Glucose Level 141H, Calcium Level 8.5, Magnesium Level 2.0 02/13/21 11:08: Glucometer 246H Patient resulted labs reviewed. Pending Labs Laboratory Tests 02/13/21 05:43: Glucometer 141 02/13/21 06:05: White Blood Count 7.4, Red Blood Count 5.03, Hemoglobin 14.7, Hematocrit 40, Mean Corpuscular Volume 80, Mean Corpuscular Hemoglobin 29, Mean Corpuscular Hemoglobin Concent 37, Red Cell Distribution Width 12.5, Platelet Count 308, Mean Platelet Volume 8.8, Immature Granulocyte % (Auto) 10, Neutrophils (%) (Auto) 58, Lymphocytes (%) (Auto) 21, Monocytes (%) (Auto) 10, Eosinophils (%) (Auto) 1, Basophils (%) (Auto) 0, Neutrophils # (Auto) 4.3, Lymphocytes # (Auto) 1.5, Monocytes # (Auto) 0.7, Eosinophils # (Auto) 0.1, Basophils # (Auto) 0.0, Immature Granulocyte # (Auto) 0.7, Sodium Level 140, Potassium Level 3.2, Chloride Level 104, Carbon Dioxide Level 23, Anion Gap 13, Blood Urea Nitrogen 8, Creatinine 0.55, Estimat Glomerular Filtration Rate 169, BUN/Creatinine Ratio 15, Glucose Level 141, Calcium Level 8.5, Magnesium Level 2.0 02/13/21 11:08: Glucometer 246 Imaging: Reviewed Imaging Report Discussion & Recommendations Discharge Planning: >30 minutes discharge planning Discharge Home Medications: Active Scripts Active Reported Centrum Men's Tablet (Multivits,Ca,Min/Iron/FA/Lycop) 1 Each Tablet 1 Each PO DAILY Invokana (Canagliflozin) 300 Mg Tablet 300 Mg PO DAILY Paroxetine HCl 20 Mg Tablet 20 Mg PO DAILY Atorvastatin Calcium 10 Mg Tablet 10 Mg PO HS Metformin HCl 1,000 Mg Tablet 1,000 Mg PO BID Instructions to patient/family Please see electronic discharge instructions given to patient. DILMA PAREDES MD Feb 13, 2021 13:13
--- NOTE | 2021-02-13 14:03 | Discharge Inst-Simple/Standard ---
Discharge Inst-Standard Patient Instructions/Follow Up Plan of Care/Instructions/FU: Please continue to take your medications as written. Please follow up with your primary care doctor to follow up this hospital stay. Activity as Tolerated: Yes Discharge Diet: ADA Diet Return to The Hospital For: Chest pain, shortness of breath, confusion, weakness, if you feel you are getting worse. DILMA PAREDES MD Feb 13, 2021 14:03
== END 2021-02-13 14:55 | disposition home or self-care (01) | DRG 637 ==
LOC: EDUNIT# 19:13 → ER 19:17 → 4TH 22:14 → ICU 02-10 14:15 → 4TH 02-11 22:36
PROVIDERS: ADMIT Internal Medicine; ATTEND Internal Medicine
DX: E11.10 Type 2 diabetes mellitus with ketoacidosis without coma (principal); U07.1 COVID-19
CPT/HCPCS: 36415; 36600; 71275; 80048; 80053; 80320; 80329; 81000; 82010; 82800; 82805; 82947; 83036; 83605; 83690; 83735; 83880; 84145; 85007; 85025; 85027; 85379; 86141